=== PATIENT | female | born 1990 | race Hispanic/Latino ===

== ENCOUNTER 2022-03-24 03:42 | Inpatient (IN) | payer OTHER ==
[2022-03-24] VITALS (23 sets, daily range): BP systolic 99–114; BP diastolic 55–74
[~2022-03-24] VITALS: Ht 162.6 cm; Wt 103.0 kg
[2022-03-24 04:23] LABS: APPEARANCE,URINE Cloudy (CLEAR); BILIRUBIN,URINE Negative (NEGATIVE); COLOR,URINE Yellow (YELLOW); GLUCOSE, URINE (UA) Negative (NEGATIVE); KETONES,URINE >=160 mg/dL (NEGATIVE); LEUKOCYTE ESTERASE ,URINE Negative (NEGATIVE); NITRATE,URINE Negative (NEGATIVE); OCCULT BLOOD,URINE Small (NEGATIVE); PH,URINE 5.5 (5.0-8.0); PROTEIN,URINE Trace mg/dL (NEGATIVE)
[2022-03-24 04:24] LABS: BASOPHILS % (AUTO) 0.3 % (0.0-5.0); EOSINOPHILS % (AUTO) 1.4 % (0.0-8.0); HEMATOCRIT 40.2 % (36-48); LYMPHOCYTES % (AUTO) 20.8 % (21.0-51.0); MEAN CORPUSCULAR HEMOGLOBIN 26.6 pg (27.0-33.0); MEAN CORPUSCULAR HGB CONC 31.6 g/dL (32.0-36.0); MEAN CORPUSCULAR VOLUME 84.3 fL (79-99); MONOCYTES % (AUTO) 4.7 % (3.0-13.0); NEUTROPHILS % (AUTO) 72.6 % (40.0-77.0); PLATELET COUNT (AUTO) 206 K/uL (130-400); RED BLOOD CELL COUNT(AUTO) 4.77 MIL/uL (4.00-5.50); RED CELL DISTRIBUTION WIDTH 13.8 % (11.0-15.5); WHITE BLOOD COUNT (AUTO) 13.6 K/uL (4.8-10.8)
[2022-03-24 04:33] LABS: CREATININE 0.6 mg/dL (0.5-1.5); POTASSIUM 3.4 mmol/L (3.5-5.1)
[2022-03-24 04:38] LABS: ALBUMIN 3.6 g/dL (3.5-5.0); BILIRUBIN,TOTAL 0.4 mg/dL (0.2-1.0); TOTAL PROTEIN, SERUM 7.3 g/dL (6.0-8.3)
[2022-03-24 04:41] LABS: BACTERIA,URINE Rare /HPF (None Seen); RBC,URINE 0-1 /HPF (0-1); WBC,URINE 0-1 /HPF (0-1)
[2022-03-24 04:42] LABS: MUCUS,URINE Few LPF (None Seen); SQUAMOUS EPITHELIAL CELL,UR Moderate /HPF (0-2)
[2022-03-24] MEDS ORDERED: 0.9%NACL 1000ML 1,000 ML IV ONE (05:00)
[2022-03-24] MEDS ORDERED: ZOSYN 3.375GM +NS 50ML IV SCH (08:00)
[2022-03-24] MEDS ORDERED: FAMOTIDINE 20MG VIAL IV ONE (09:00)
[2022-03-24] MEDS ORDERED: POTASSIUM CHLORIDE 20MEQ/100ML 100 ML IV PRN (09:00)
[2022-03-24 09:15] LABS: AMPHET/METH SCREEN,URINE NEGATIVE (NEGATIVE); BARBITURATE SCREEN, URINE NEGATIVE (NEGATIVE); BENZODIAZEPINES SCREEN,URINE NEGATIVE (NEGATIVE); CANNABINOID SCREEN,URINE NEGATIVE (NEGATIVE); COCAINE SCREEN,URINE NEGATIVE (NEGATIVE); OPIATE SCREEN,URINE NEGATIVE (NEGATIVE); PHENCYCLIDINE SCREEN,URINE NEGATIVE (NEGATIVE)
[2022-03-24] MEDS: LACTATED RINGERS 1000ML 1,000 ML IV SCH ×3 (09:30→17:20)
[2022-03-24] MEDS ORDERED: ZOSYN 3.375GM+NS 50ML 50 ML ONE (13:30)
[2022-03-24] MEDS ORDERED: PANT40TA54 PO (13:35)
[2022-03-24] MEDS ORDERED: CEFAZOLIN SODIUM 1 GM VIAL ONE (13:37)
[2022-03-24] MEDS ORDERED: LIDOCAINE 1%-EPI 1:100,000 20 ML VIAL IJ ONE (13:37)
[2022-03-24] MEDS ORDERED: MULT-1367 PO (13:37)
[2022-03-24] MEDS ORDERED: BUPIVACAINE/PF 0.25% 30ML VIAL IJ ONE (13:37)
[2022-03-24] MEDS ORDERED: VITAMIN B12 PO (13:37)
[2022-03-24] MEDS ORDERED: BIOTIN PO (13:37)
[2022-03-24] MEDS ORDERED: GLYCOPYRROLATE 1 MG/5 ML SYRINGE ONE (13:52)
[2022-03-24] MEDS ORDERED: ONDANSETRON 4MG INJ ONE (13:52)
[2022-03-24] MEDS ORDERED: PROPOFOL 10 MG/ML 20ML VIAL IV ONE (13:52)
[2022-03-24] MEDS ORDERED: MIDAZOLAM HCL 1 MG/ML 2ML VIAL ONE (13:52)
[2022-03-24] MEDS ORDERED: DEXAMETHASONE SOD PHOSPHATE 10MG/ML 1ML VIAL ONE (13:52)
[2022-03-24] MEDS ORDERED: NEOSTIGMINE 5MG/5ML SYR IV ONE (13:52)
[2022-03-24] MEDS ORDERED: LIDOCAINE PF 100MG/5ML (2%) SYRINGE 5ML ONE (13:52)
[2022-03-24] MEDS ORDERED: SUCCINYLCHOLINE 200MG/10ML SYR ONE (13:52)
[2022-03-24] MEDS ORDERED: ROCURONIUM 10MG/1ML SYR 10 MG/ML ML ONE (13:53)
[2022-03-24] MEDS ORDERED: FENTANYL CITRATE PF 50 MCG/1 ML 2ML VIAL ONE (13:54)
[2022-03-24 14:18] LABS: HEMOGLOBIN A1C 5.9 % (4.0-6.0)
[2022-03-24] MEDS ORDERED: MEPERIDINE-PF 25 MG/ML SYG ONE ×3 (14:44→15:27)
[2022-03-24] MEDS ORDERED: FENTANYL CITRATE PF 50 MCG/1 ML 5ML AMP IV ONE (14:50)
[2022-03-24] MEDS ORDERED: HYDROMORPHONE 1 MG INJ IVP PRN (16:30)
[2022-03-24] MEDS ORDERED: MORPHINE 2 MG SYG IVP PRN (16:30)
[2022-03-24] MEDS ORDERED: KETOROLAC 30MG VIAL (30MG/ML) IVP PRN (16:30)
[2022-03-24 19:21] LABS: INR 1.06 (0.85-1.15); PROTHROMBIN TIME 11.5 SEC (9.6-11.6)
[2022-03-24 19:22] LABS: PARTIAL THROMBOPLASTIN TIME 30.9 SEC (26.3-35.5)
[2022-03-24] MEDS: ZOSYN 3.375GM +NS 50ML IV SCH (21:23)
[2022-03-25] MEDS: LACTATED RINGERS 1000ML 1,000 ML IV SCH ×3 (00:46→20:31)
[2022-03-25 03:00] VITALS: BP 104/61
[2022-03-25] MEDS ORDERED: KCL 20 MEQ ERTAB PO PRN (04:30)
[2022-03-25] MEDS ORDERED: LIDOCAINE HCL-MPF 1% 2ML VIAL IV PRN (04:30)
[2022-03-25] MEDS ORDERED: POTASSIUM CHLORIDE 10% ELIXIR 20 MEQ/15 ML UDCUP PO PRN (04:30)
[2022-03-25] MEDS ORDERED: POTASSIUM CHLORIDE 20MEQ/100ML 100 ML IV PRN (04:30)
[2022-03-25] MEDS: OXYCODONE/ACETAMIN 5/325MG TAB PO PRN ×3 (04:50→21:47)
[2022-03-25 05:02] LABS: POTASSIUM 3.9 mmol/L (3.5-5.1)
[2022-03-25] MEDS: ZOSYN 3.375GM +NS 50ML IV SCH ×3 (06:36→21:43)
[2022-03-25 06:46] LABS: BASOPHILS % (AUTO) 0.3 % (0.0-5.0); EOSINOPHILS % (AUTO) 0.9 % (0.0-8.0); LYMPHOCYTES % (AUTO) 21.1 % (21.0-51.0); MEAN CORPUSCULAR HEMOGLOBIN 26.4 pg (27.0-33.0); MEAN CORPUSCULAR HGB CONC 30.9 g/dL (32.0-36.0); MEAN CORPUSCULAR VOLUME 85.3 fL (79-99); MONOCYTES % (AUTO) 6.9 % (3.0-13.0); NEUTROPHILS % (AUTO) 70.5 % (40.0-77.0); PLATELET COUNT (AUTO) 166 K/uL (130-400); RED BLOOD CELL COUNT(AUTO) 3.75 MIL/uL (4.00-5.50); WHITE BLOOD COUNT (AUTO) 7.9 K/uL (4.8-10.8)
[2022-03-25 06:52] LABS: CREATININE 0.5 mg/dL (0.5-1.5)
[2022-03-25 08:13] VITALS: BP 121/70
[2022-03-25] MEDS ORDERED: PHARMACY COMMUNICATION MISC SCH (08:30)
[2022-03-25] MEDS ORDERED: ACETAMINOPHEN 325 MG TAB PO PRN (17:00)
[2022-03-25 20:03] VITALS: BP 131/71
[2022-03-25] MEDS: DOCUSATE SODIUM 100 MG CAP PO SCH (20:57)
[2022-03-25 23:44] VITALS: BP 113/72
[2022-03-26 03:55] VITALS: BP 102/63
[2022-03-26] MEDS: ZOSYN 3.375GM +NS 50ML IV SCH (05:49)
[2022-03-26] MEDS: LACTATED RINGERS 1000ML 1,000 ML IV SCH (05:56)
[2022-03-26 07:30] VITALS: BP 120/69
[2022-03-26] MEDS: DOCUSATE SODIUM 100 MG CAP PO SCH (11:08)
== END 2022-03-26 11:20 | disposition home or self-care (01) | DRG 343 ==
LOC: EDH 03:42 → EDHIP 03:43 → WSH 16:15
PROVIDERS: ADMIT Internal Medicine; ATTEND Internal Medicine
PROC: 0DTJ4ZZ Resection of Appendix, Percutaneous Endoscopic Approach (ICD-10-PCS; principal; 2022-03-24 13:54)
DX: K35.80 Unspecified acute appendicitis (principal); Z98.84 Bariatric surgery status; E87.6 Hypokalemia; E66.01 Morbid (severe) obesity due to excess calories; Z68.39 Body mass index [BMI] 39.0-39.9, adult
CPT/HCPCS: 36415; 74176; 80048; 80053; 80305; 81001; 83036; 83690; 84703; 85025; 85610; 85730; 87635; A4344; G0378; J0330; J0690; J1100; J1170; J2001; J2175; J2250; J2405; J2543; J2704; J2710; J3010; J3480; J3490; J7030; J7120